=== PATIENT | female | born 1965 ===

== ENCOUNTER 2022-11-30 07:00 | Outpatient (CLI) | payer SELFPAY ==
--- NOTE | 2022-11-30 14:35 | XRAY Report ---
PROCEDURE: Hip w/Pelvis 2-3V LT INDICATIONS: SCIATICA,LEFT TECHNIQUE: AP pelvis with lateral view(s) of the left hip(s). COMPARISON: None. FINDINGS: Bones: No fractures or dislocations. No suspicious bony lesions. No definite or substantial hip wendy nt space narrowing identified bilaterally. Soft tissues: No suspicious soft tissue calcifications. IMPRESSION: No acute bony abnormality. If there is a high clinical concern for fracture, consider cross-sectional imaging now. If pain persists, consider repeat x-ray in 10-14 days or cross-sectional imaging. Reviewed by: Silvino Velasco MD on 11/30/2022 2:34 PM PDT Approved by: Silvino Velasco MD on 11/30/2022 2:34 PM PDT Station ID: [id number]
--- NOTE | 2022-11-30 14:37 | XRAY Report ---
PROCEDURE: Lumbar Spine 2 View INDICATIONS: SCIATICA,LEFT TECHNIQUE: 3 views of the lumbar spine were acquired. COMPARISON: None. FINDINGS: Bones: 5 [id number] vertebrae are present. Minimal right convexity curvature of the lumbar spin e centered at L3. Mild multilevel degenerative changes with disc height loss, endplate spurring, and facet arthropathy. No vertebral body compression fractures. Soft tissues: Overlying bowel gas pattern is normal. No suspicious soft tissue calcifications. IMPRESSION: Mild multilevel degenerative changes of the lumbar spine. Reviewed by: Silvino Velasco MD on 11/30/2022 2:36 PM PDT Approved by: Silvino Velasco MD on 11/30/2022 2:36 PM PDT Station ID: [id number]
== END 2022-11-30 23:59 | disposition home or self-care (01) ==
LOC: DI.S 07:00
PROVIDERS: ATTEND Physician Assistant
DX: M54.32 Sciatica, left side (principal); M47.816 Spondylosis without myelopathy or radiculopathy, lumbar region